=== PATIENT | female | born 2000 | race Two or more races ===

== ENCOUNTER 2020-12-02 10:23 | Emergency (ER) | payer OTHER ==
[~2020-12-02] VITALS: Ht 154.9 cm; Wt 45.4 kg
[2020-12-02] MEDS ORDERED: TRISPEC PSE LI118 ML PO (12:14)
[2020-12-02] MEDS ORDERED: ZYRTEC10 MG PO (12:14)
== END 2020-12-02 12:46 | disposition home or self-care (01) ==
LOC: EMR PED 10:23
DX: R09.81 Nasal congestion (principal); R05 Cough; R51.9 Headache, unspecified; Z11.52 Encounter for screening for COVID-19